=== PATIENT | female | born 1945 | race Caucasian/White ===

== ENCOUNTER 2017-04-21 00:39 | Emergency (ER) | payer OTHER, BC ==
[~2017-04-21] VITALS: Ht 160 cm; Wt 86.4 kg
[~2017-04-21 00:39] MED LIST: ASPIRIN EC325 MG PO; CALCIUM 500 MG1 EACH PO; CELEBREX200 MG PO; FISH OIL 1,2001 EAC4 PO; HYDROCODON-ACE1 EAC7 PO; LISINOPRIL10 MG PO; LO-DOSE ASPIRIN81 M1 PO; MULTIPLE VITAM1 EACH PO; NABUMETONE500 MG PO; RESTASIS 01 DROP/0.4 BOTH EYES; VITAMIN D-32000 UNI1 PO
[2017-04-21 01:42] LABS: BASE EXCESS -3.8 mEq/L (-3 to +3); BICARBONATE 21.5 mEq/L (22-26); CARBOXY HGB 2.6 % (0-5); METHEMOGLOBIN 1.4 % (0-1.5); PCO2 39 mm Hg (35-45); PO2 89 mm Hg (80-100); pH 7.35 (7.35-7.45)
[2017-04-21 01:43] LABS: COMMENTS - BLOOD GASES C+A+; DEVICE ROOM AIR; SITE RR; TOTAL RESP RATE 15 resp/min
[2017-04-21] MEDS ORDERED: NORCO 5/3251 TABLET PO (03:34)
[2017-04-21 04:20] VITALS: BP 128/76
== END 2017-04-21 04:36 | disposition home or self-care (01) ==
LOC: EME 00:39
PROVIDERS: Emergency Medicine
DX: M54.9 Dorsalgia, unspecified (principal); G89.29 Other chronic pain; I10 Essential (primary) hypertension
CPT/HCPCS: 36600; 72131; 82803; 99281; 99284